=== PATIENT | female | born 1990 | race Caucasian/White ===

== ENCOUNTER → 2019-05-12 08:26 | Outpatient (BNVA) | payer OTHER, SELFPAY | PROVIDERS: Family Provider Family Medicine; PCP Nurse Practitioner; Referring Provider Nurse Practitioner; Visit Provider Nurse Practitioner | DX: F41.9 Anxiety disorder, unspecified (principal); Z76.89 Persons encountering health services in other specified circumstances | CPT/HCPCS: 80053; 84443; 85025 ==

== ENCOUNTER 2019-05-28 12:51 | Outpatient (REF) | payer OTHER, SELFPAY ==
[2019-05-28 16:06] LABS: Add Urine Microscopic? YES; Bilirubin Urine Neg (NEGATIVE); Blood Urine Neg (Negative); Glucose Urine UA Norm (Normal); Ketones Urine Negative (Negative); Leukocyte Esterase Urine 1+ (Negative); Nitrate Urine Positive (Negative); Protein Urine Neg (Negative); Sulfosalicylic Acid Urine Positive; Urine Appearance Cloudy (CLEAR); Urine Color Yellow (Yellow); Urobilinogen Urine Norm (Negative); pH Urine 8 (5-7)
[2019-05-28 16:14] LABS: Bacteria Urine 4+; Squamous Epithelial Cell Urine 0-4 (0-5)
[2019-05-28 16:15] LABS: Add Urine Culture? Yes; Amorphous Sediment Urine 1+; WBC Urine 40-55 /hpf (0-5)
== END 2019-05-28 12:52 | disposition home or self-care (01) ==
LOC: LAB 12:51
PROVIDERS: Obstetrics & Gynecology; Family Provider Family Medicine; PCP Nurse Practitioner; Visit Provider Pharmacist
DX: N39.0 Urinary tract infection, site not specified (principal)
CPT/HCPCS: 81001; 87086

== ENCOUNTER → 2019-06-19 11:53 | Outpatient (BNVA) | payer OTHER, SELFPAY | PROVIDERS: Family Provider Family Medicine; PCP Nurse Practitioner; Visit Provider Family Medicine | DX: H93.90 Unspecified disorder of ear, unspecified ear (principal); H92.09 Otalgia, unspecified ear | CPT/HCPCS: 87081; 87804; 87880 ==

== ENCOUNTER 2019-12-22 09:32 | Outpatient (CLI) | payer OTHER, SELFPAY ==
[2019-12-22 10:11] LABS: Thyroid Stimulating Hormone 1.77 uIU/mL (0.27-4.20)
== END 2019-12-22 09:33 | disposition home or self-care (01) ==
LOC: LAB 09:37
PROVIDERS: Visit Provider Surgery
DX: R53.83 Other fatigue (principal)
CPT/HCPCS: 84443

== ENCOUNTER 2020-01-04 11:01 | Outpatient (CLI) | payer OTHER, SELFPAY ==
[2020-01-04 13:34] LABS: Free T4 Free Thyroxine 1.02 ng/dL (0.82-1.77)
[2020-01-04 13:36] LABS: 25 Hydroxy Vitamin D 28 ng/mL (30-100); Ferritin 13 ng/mL (15-150); Follicle Stimulating Hormone 9.9 mIU/mL; Iron 82 ug/dL (37-145); Percent Saturation 19.5 % (20-50); Total Iron Binding Capacity 419 mcg/dl; Unsaturated Iron Binding 337 ug/dL (112-347)
[2020-01-04 14:08] LABS: Estradiol. 51.2 pg/mL
== END 2020-01-04 11:02 | disposition home or self-care (01) ==
LOC: LAB 11:04
PROVIDERS: PCP Nurse Practitioner Family; Visit Provider Internal Medicine
DX: F32.9 Major depressive disorder, single episode, unspecified (principal); L65.9 Nonscarring hair loss, unspecified; R63.5 Abnormal weight gain
CPT/HCPCS: 82306; 82670; 82728; 83001; 83540; 83550; 84439

== ENCOUNTER → 2020-03-13 11:39 | Outpatient (BNVA) | payer OTHER, SELFPAY | PROVIDERS: PCP Nurse Practitioner Family; Visit Provider Emergency Medicine | DX: Z20.828 Contact with and (suspected) exposure to other viral communicable diseases (principal) | CPT/HCPCS: 87400; 87635 ==

== ENCOUNTER → 2020-06-24 15:30 | Outpatient (BNVA) | payer OTHER, SELFPAY | PROVIDERS: PCP Nurse Practitioner Family; Visit Provider Obstetrics & Gynecology | DX: Z12.4 Encounter for screening for malignant neoplasm of cervix (principal) | CPT/HCPCS: 88175 ==

== ENCOUNTER 2020-10-13 09:32 | Outpatient (CLI) | payer OTHER, SELFPAY | END 2020-10-13 09:33 | disposition home or self-care (01) | PROVIDERS: PCP Nurse Practitioner Family; Visit Provider Obstetrics & Gynecology | DX: U07.1 COVID-19 (principal) | CPT/HCPCS: 36415; 86769 ==